=== PATIENT | female | born 1995 | race Caucasian/White ===

== ENCOUNTER 2019-08-31 20:28 | Emergency (ER) | payer SELFPAY ==
[2019-08-31 22:39] LABS: Urine Blood NEGATIVE (NEG); Urine Glucose NEGATIVE (NEG); Urine Protein NEGATIVE (NEG); Urine Specific Gravity 1.025 (1.005-1.030)
[2019-08-31 22:40] LABS: Urine Specific Gravity 1.025 (1.005-1.030)
[2019-08-31] MEDS ORDERED: clonazePAM 0.5 MG TAB ONE (22:55)
[2019-08-31 23:32] LABS: Absolute Lymphocytes (CBC) 3.4 K/uL (0.7-4.9); Hematocrit 38.1 % (36.0-45.0); Lymphocytes % 35.9 % (15.3-44.8); MPV 8.7 fL (7.6-11.3); RBC Red Blood Cell Count 4.61 M/uL (3.86-4.86)
[2019-08-31 23:46] LABS: BUN Blood Urea Nitrogen 8 mg/dL (7-18); Bicarbonate 26 mmol/L (21-32); Glucose Level 110 mg/dL (74-106); Potassium 4.1 mmol/L (3.5-5.1); Sodium Level 139 mmol/L (136-145)
--- NOTE | 2019-09-01 00:43 | EDPHYS ---
Physician Documentation [facility] Name: Renetta Ramirez Age: 23 yrs Sex: Female : 1995 Arrival Date: 08/31/2019 Time: 20:32 Bed 14 Private MD: ED Physician Navid Gonzalez HPI: 08/30 23:43 This 23 yrs old Female presents to ER via Ambulatory with complaints of kb Shortness Of Breath, Nausea, Headache. 23:43 The patient presents to the emergency department with nausea, vomiting. Onset: The kb symptoms/episode began/occurred this morning. Possible causes: unknown. The symptoms are aggravated by nothing. The symptoms are alleviated by nothing. Associated signs and symptoms: Pertinent positives: nausea, vomiting, Pertinent negatives: abdominal pain, anorexia, belching, constipation, diarrhea, dysuria, fever, flatulence, GI bleeding, hematuria, vaginal discharge. Severity of symptoms: At their worst the symptoms were moderate in the emergency department the symptoms are unchanged. The patient has not experienced similar symptoms in the past. The patient has not recently seen a physician. Pt reports nausea, vomiting, low back pain and lightheadedness that started this morning. . 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 - Social history:: Smoking status: Patient denies any tobacco usage or history of. ROS: 23:41 Constitutional: Negative for fever, chills, and weight loss, Neck: Negative for injury, kb pain, and swelling, Cardiovascular: Negative for chest pain, palpitations, and edema, Respiratory: Negative for shortness of breath, cough, wheezing, and pleuritic chest pain, : Negative for injury, bleeding, discharge, and swelling, MS/Extremity: Negative for injury and deformity, Skin: Negative for injury, rash, and discoloration, Neuro: Negative for headache, weakness, numbness, tingling, and seizure. 23:41 Abdomen/GI: Positive for nausea and vomiting, Negative for abdominal pain, diarrhea, constipation. 23:42 Back: Positive for pain at rest, of the low back area. kb Exam: 23:42 Constitutional: This is a well developed, well nourished patient who is awake, alert, kb and in no acute distress. Head/Face: Normocephalic, atraumatic. ENT: Nares patent. No nasal discharge, no septal abnormalities noted. Tympanic membranes are normal and external auditory canals are clear. Oropharynx with no redness, swelling, or masses, exudates, or evidence of obstruction, uvula midline. Mucous membranes moist. Neck: Trachea midline, no thyromegaly or masses palpated, and no cervical lymphadenopathy. Supple, full range of motion without nuchal rigidity, or vertebral point tenderness. No Meningismus. Chest/axilla: Normal chest wall appearance and motion. Nontender with no deformity. No lesions are appreciated. Cardiovascular: Regular rate and rhythm with a normal S1 and S2. No gallops, murmurs, or rubs. Normal PMI, no JVD. No pulse deficits. Respiratory: Lungs have equal breath sounds bilaterally, clear to auscultation and percussion. No rales, rhonchi or wheezes noted. No increased work of breathing, no retractions or nasal flaring. Abdomen/GI: Soft, non-tender, with normal bowel sounds. No distension or tympany. No guarding or rebound. No evidence of tenderness throughout. Skin: Warm, dry with normal turgor. Normal color with no rashes, no lesions, and no evidence of cellulitis. MS/ Extremity: Pulses equal, no cyanosis. Neurovascular intact. Full, normal range of motion. Neuro: Awake and alert, GCS 15, oriented to person, place, time, and situation. Cranial nerves II-XII grossly intact. Motor strength 5/5 in all extremities. Sensory grossly intact. Cerebellar exam normal. Normal gait. Vital Signs: 20:40 BP 138 / 80; Pulse 103; Resp 19 S; Temp 98(O); Pulse Ox 98% on R/A; Weight 104.33 kg ca1 (R); Height 5 ft. 4 in. (162.56 cm) (R); Pain 0/10; 22:05 BP 147 / 95; Pulse 93; Resp 17 S; Pulse Ox 99% on R/A; ca1 23:06 BP 125 / 70; Pulse 89; Resp 19; Pulse Ox 100% on R/A; ca1 20:40 Body Mass Index 39.48 (104.33 kg, 162.56 cm) ca1 MDM: 21:56 Patient medically screened. charlie 22:48 ED course: Pt began having anxiety attack when nurse went to start IV and get blood. Pt kb states this happens every time she has blood work done and normally has to take clonazapam prior to going to the lab. . 23:15 Data reviewed: vital signs, nurses notes. Data interpreted: Pulse oximetry: on room air kb is 100 %. Interpretation: normal. 08/31 00:41 Counseling: I had a detailed discussion with the patient and/or guardian regarding: the kb historical points, exam findings, and any diagnostic results supporting the discharge/admit diagnosis, lab results, radiology results, the need for outpatient follow up, a family practitioner, to return to the emergency department if symptoms worsen or persist or if there are any questions or concerns that arise at home. 08/30 22:10 Order name: CBC with Diff kb 08/30 22:10 Order name: Basic Metabolic Panel kb 08/30 22:10 Order name: D-Dimer kb 08/30 22:10 Order name: Hemoglobin A1c kb 08/30 22:11 Order name: CBC with Automated Diff; Complete Time: 23:49 EDMS 08/30 22:11 Order name: Basic Metabolic Panel; Complete Time: 23:49 EDMS 08/30 22:10 Order name: IV Start; Complete Time: 23:20 kb 08/30 22:10 Order name: Urine Test (obtain specimen); Complete Time: 22:17 kb 08/30 22:11 Order name: D-Dimer; Complete Time: 23:49 EDMS 08/30 22:18 Order name: Urine Dipstick--Ancillary (enter results) ds4 08/30 22:18 Order name: Urine Dipstick-Ancillary; Complete Time: 22:43 EDMS 08/30 22:19 Order name: Urine --Ancillary (enter results); Complete Time: 22:43 ds4 08/30 23:51 Order name: Chest Single View XRAY kb 08/30 22:10 Order name: Urine Dipstick-Ancillary (obtain specimen); Complete Time: 22:17 kb Administered Medications: 08/30 22:53 Drug: clonazePAM 0.25 mg Route: PO; mg2 23:30 Follow up: Response: No adverse reaction; Marked relief of symptoms mg2 Disposition: 09/01/19 00:41 Discharged to Home. Impression: Nausea and vomiting, Low back pain. - Condition is Stable. - Discharge Instructions: Nausea and Vomiting, Adult, Bjxe-jx-Eynz, Back Pain, Adult, Iluj-qi-Youy. - Prescriptions for Zofran 4 mg Oral Tablet - take 1 tablet by ORAL route every 6 hours As needed; 20 tablet. - Medication Reconciliation Form, Thank You Letter, Antibiotic Education, Prescription Opioid Use, Work release form form. - Follow up: Emergency Department; When: As needed; Reason: Worsening of condition. Follow up: Private Physician; When: 2 - 3 days; Reason: Recheck today's complaints, Continuance of care, Re-evaluation by your physician. Addendum: 09/03/2019 15:02 Co-signature as Attending Physician, Navid Gonzalez MD I agree with the assessment and c blair plan of care. Signatures: Dispatcher [employer] EDNadia Garcia, MUNICIPAL FIREFIGHTER-C MUNICIPAL FIREFIGHTER-Navid Nagy MD MD cha Gardose, Michele, RN RN mg2 Rosalie Reed RN RN ca1 Corrections: (The following items were deleted from the chart) 08/30 23:43 23:41 Constitutional: Negative for fever, chills, and weight loss, Neck: Negative for kb injury, pain, and swelling, Cardiovascular: Negative for chest pain, palpitations, and edema, Respiratory: Negative for shortness of breath, cough, wheezing, and pleuritic chest pain, Back: Negative for injury and pain, : Negative for injury, bleeding, discharge, and swelling, MS/Extremity: Negative for injury and deformity, Skin: Negative for injury, rash, and discoloration, Neuro: Negative for headache, weakness, numbness, tingling, and seizure, kb 08/31 01:25 00:41 09/01/2019 00:41 Discharged to Home. Impression: Nausea and vomiting; Low back mg2 pain. Condition is Stable. Forms are Medication Reconciliation Form, Thank You Letter, Antibiotic Education, Prescription Opioid Use. Follow up: Emergency Department; When: As needed; Reason: Worsening of condition. Follow up: Private Physician; When: 2 - 3 days; Reason: Recheck today's complaints, Continuance of care, Re-evaluation by your physician. kb
--- NOTE | 2019-09-01 00:43 | ER ---
Nurse's Notes [facility] Name: Renetta Ramirez Age: 23 yrs Sex: Female : 1995 Arrival Date: 08/31/2019 Time: 20:32 Bed 14 Private MD: Diagnosis: Nausea and vomiting;Low back pain Presentation: 08/30 20:37 Chief complaint: Patient states: Was at work earlier today, started having tight chest, ca1 nausea, dizziness and like I was about to pass out. Denies fever and cough. Coronavirus screen: Proceed with normal triage. Patient denies a cough. Patient reports shortness of breath or difficulty breathing. Patient denies measured and/or subjective temperature greater than 100.4F prior to today's visit. Patient denies travel on a cruise ship or to a country the [facility] currently lists as an affected area. Patient denies contact with known and/or suspected case of COVID-19. Ebola Screen: Patient negative for fever greater than or equal to 101.5 degrees Fahrenheit, and additional compatible Ebola Virus Disease symptoms Patient denies exposure to infectious person. Patient denies travel to an Ebola-affected area in the 21 days before illness onset. No symptoms or risks identified at this time. Initial Sepsis Screen: Does the patient meet any 2 criteria? No. Patient's initial sepsis screen is negative. Does the patient have a suspected source of infection? No. Patient's initial sepsis screen is negative. Risk Assessment: Do you want to hurt yourself or someone else? Patient reports no desire to harm self or others. Onset of symptoms was August 31, 2019. 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 - Social history:: Smoking status: Patient denies any tobacco usage or history of. Screenin:04 Abuse screen: Denies threats or abuse. Denies injuries from another. Nutritional ca1 screening: No deficits noted. Tuberculosis screening: No symptoms or risk factors identified. Fall Risk None identified. Assessment: 22:04 General: Appears in no apparent distress. comfortable, Behavior is calm, cooperative, ca1 appropriate for age. General: Appears obese. Pain: Denies pain. Neuro: Level of Consciousness is awake, alert, obeys commands, Oriented to person, place, time, situation. Cardiovascular: Heart tones S1 S2 present Capillary refill < 3 seconds Patient's skin is warm and dry. Respiratory: Airway is patent Respiratory effort is even, unlabored, Respiratory pattern is regular, symmetrical, Breath sounds are clear bilaterally. GI: Abdomen is round non-distended, obese, Bowel sounds present X 4 quads. Abd is soft and non tender X 4 quads. : No signs and/or symptoms were reported regarding the genitourinary system. EENT: No signs and/or symptoms were reported regarding the EENT system. Derm: Skin is intact, is healthy with good turgor, Skin is pink, warm \T\ dry. Musculoskeletal: Circulation, motion, and sensation intact. Capillary refill < 3 seconds. Vital Signs: 20:40 BP 138 / 80; Pulse 103; Resp 19 S; Temp 98(O); Pulse Ox 98% on R/A; Weight 104.33 kg ca1 (R); Height 5 ft. 4 in. (162.56 cm) (R); Pain 0/10; 22:05 BP 147 / 95; Pulse 93; Resp 17 S; Pulse Ox 99% on R/A; ca1 23:06 BP 125 / 70; Pulse 89; Resp 19; Pulse Ox 100% on R/A; ca1 20:40 Body Mass Index 39.48 (104.33 kg, 162.56 cm) ca1 ED Course: 20:32 Patient arrived in ED. fj1 20:34 Nadia Martinez FNP-C is PHCP. kb 20:34 Navid Gonzalez MD is Attending Physician. kb 20:39 Triage completed. ca1 20:40 Arm band placed on right wrist. ca1 21:53 Rosalie Reed RN is Primary Nurse. ca1 22:04 Patient has correct armband on for positive identification. Bed in low position. Call ca1 light in reach. Side rails up X 1. Pulse ox on. NIBP on. 23:11 Report given to SHWETA Ventura. ca1 23:15 Inserted saline lock: 20 gauge in left upper arm, using aseptic technique. Blood mg2 collected. 23:27 No provider procedures requiring assistance completed. mg2 08/31 00:24 Chest Single View XRAY In Process Unspecified. EDMS 01:24 IV discontinued, intact, bleeding controlled, No redness/swelling at site. Pressure mg2 dressing applied. Administered Medications: 08/30 22:53 Drug: clonazePAM 0.25 mg Route: PO; mg2 23:30 Follow up: Response: No adverse reaction; Marked relief of symptoms mg2 Outcome: 08/31 00:41 Discharge ordered by . vidhi 01:24 Discharged to home ambulatory. mg2 01:24 Condition: stable 01:24 Discharge instructions given to patient, Instructed on discharge instructions, follow up and referral plans. medication usage, Demonstrated understanding of instructions, follow-up care, medications, Prescriptions given X 1. 01:25 Patient left the ED. mg2 Signatures: Dispatcher [employer] EDMS Nadia Martinez, DYLAN-C DYLAN-Jermaine Elam RN RN mg2 Rosalie Reed RN RN ca1 Luigi Aguilar fj Corrections: (The following items were deleted from the chart) 08/30 20:41 20:37 Chief complaint: Patient states: Was at work earlier today, started having tight ca1 chest, nausea, dizziness and like I was about to pass out. Denies fever and cough. ca1 20:41 20:37 Coronavirus screen: Proceed with normal triage. Patient denies a cough. Patient ca1 denies shortness of breath or difficulty breathing. Patient denies measured and/or subjective temperature greater than 100.4F prior to today's visit. Patient denies travel on a cruise ship or to a country the [facility] currently lists as an affected area. Patient denies contact with known and/or suspected case of COVID-19. ca1 23:11 23:06 Pulse 89bpm; Resp 19bpm; Pulse Ox 100% RA; ca1 ca1
[2019-09-01 02:37] VITALS: TEMP 98
[2019-09-01 02:40] VITALS: BP 125/70; O2SAT 100
--- NOTE | 2019-09-01 11:53 | RAD REPORT ---
EXAM DESCRIPTION: RAD - Chest Single View - 09/01/2019 12:24 am CLINICAL HISTORY: DYSPNEA Chest pain. COMPARISON: No comparisons FINDINGS: Portable technique limits examination quality. The lungs are grossly clear. The heart is normal in size. No displaced fractures. IMPRESSION: No acute intrathoracic process suspected.
== END 2019-09-01 01:25 | disposition home or self-care (01) ==
LOC: ER 20:28
DX: R11.2 Nausea with vomiting, unspecified (principal); M54.5 Low back pain
CPT/HCPCS: 36415; 71045; 80048; 81003; 81025; 85025; 85379; 99284

== ENCOUNTER 2020-10-19 21:19 | Emergency (ER) | payer SELFPAY ==
--- OUTSIDE RECORDS SUMMARY | 2020-10-19 21:22 | XMS REPORT | Continuity of Care Document ---
:1995 Author Organization [facility] t Address [address] [place] [address] Care Team Providers Name Role Phone Melanie Hamilton MD Attending Clinician Luis RICHARDSON Attending Clinician Chuck Attending Clinician Adwoa Valle DO Attending Clinician Trino SALDANA Attending Clinician Aaron RICHARDSON Attending Clinician Trino SALDANA Admitting Clinician Problems This patient has no known problems. Allergies, Adverse Reactions, Alerts This patient has no known allergies or adverse reactions. Medications This patient has no known medications. Procedures This patient has no known procedures. Encounters Start End Encounter Admission Attending Care Care Encounter Source Date/Time Date/Time Type Type Clinicians Facility Department ID 2019-12-21 2019-12-21 Emergency Joy, JOY [id number] 08:43:00 11:25:00 Ashu FERNANDES [id number] 2019-12-13 2019-12-13 Emergency CAIO Smith [id number] 19:03:00 20:33:00 Jhonny Rogers [id number] [place] [id number] [place] [id number] 2019-10-22 2019-10-22 Transition [place] [id number] 00:00:00 00:00:00 of Care Debby Cerna [id number] [place] [id number] 2019-10-19 2019-10-20 [facility] [address] [id number] 10:31:16 14:20:00 Encounter Naren Jameson [id number] [place] [id number] [place] [id number] 2019-10-15 2019-10-15 Emergency [facility] [id number] 16:33:19 20:25:00 Hardik Rogers [id number] [place] [id number] [place] [id number] 2019-07-17 2019-07-17 Emergency E [facility]BL [facility]BL [id number] [facility]BL 16:09:00 16:09:00 Results This patient has no known results.
--- NOTE | 2020-10-19 22:03 | EDPHYS ---
Physician Documentation [facility] Name: Renetta Ramirez Age: 24 yrs Sex: Female : 1995 Arrival Date: 10/19/2020 Time: 21:23 Bed 24 Private MD: ED Physician Shan Lebron HPI: 10/20 00:33 This 24 yrs old Female presents to ER via Ambulatory with complaints of Ear kb Pain. 00:33 The patient presents with drainage, a fullness, pain. The complaints affect the left kb ear. Onset: The symptoms/episode began/occurred today. Modifying factors: The symptoms are alleviated by nothing, the symptoms are aggravated by nothing. Associated signs and symptoms: The patient has no apparent associated signs or symptoms. Severity of symptoms: At their worst the symptoms were moderate in the emergency department the symptoms are unchanged. The patient has experienced similar episodes in the past. The patient has not recently seen a physician. 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 Flu vaccine is up to date. - Social history:: Smoking status: Patient denies any tobacco usage or history of. ROS: 10/20 00:33 Constitutional: Negative for fever, chills, and weight loss. kb ENT: Positive for drainage from ear(s), ear pain. All other systems are negative. Exam: 00:32 Constitutional: This is a well developed, well nourished patient who is awake, alert, kb and in no acute distress. Head/Face: Normocephalic, atraumatic. Respiratory: Respirations even and unlabored. No increased work of breathing, no retractions or nasal flaring. Skin: Warm, dry with normal turgor. Normal color. MS/ Extremity: Pulses equal, no cyanosis. Neurovascular intact. Full, normal range of motion. Neuro: Awake and alert, GCS 15, oriented to person, place, time, and situation. Moves all extremities. Normal gait. Psych: Awake, alert, with orientation to person, place and time. Behavior, mood, and affect are within normal limits. 00:32 ENT: External ear(s): are unremarkable, erythema, that is moderate, Ear canal(s): erythema, that is moderate, of the left canal, purulent discharge, that is minimal, in the left canal, swelling, that is minimal, of the left canal, TM's: not visable, because of cerumen, Examination of the other ear shows no obvious abnormality. Vital Signs: 10/19 21:35 BP 132 / 73; Pulse 97; Resp 16; Temp 97.6(TE); Pulse Ox 98% on R/A; Weight 113.4 kg ca1 (R); Height 5 ft. 4 in. (162.56 cm) (R); Pain 6/10; 22:05 BP 106 / 53; Pulse 99; Resp 18; Pulse Ox 97% on R/A; vg1 21:35 Body Mass Index 42.91 (113.40 kg, 162.56 cm) ca1 MDM: 21:45 Patient medically screened. kb 10/20 00:32 Data reviewed: vital signs, nurses notes. Data interpreted: Pulse oximetry: on room air kb is 97 %. Interpretation: normal. Counseling: I had a detailed discussion with the patient and/or guardian regarding: the historical points, exam findings, and any diagnostic results supporting the discharge/admit diagnosis, the need for outpatient follow up, an ENT specialist, to return to the emergency department if symptoms worsen or persist or if there are any questions or concerns that arise at home. Administered Medications: No medications were administered Disposition: 02:01 Co-signature as Attending Physician, Shan Lebron MD. pkl Disposition: 10/19/20 22:02 Discharged to Home. Impression: Unspecified otitis externa, left ear. - Condition is Stable. - Discharge Instructions: Otitis Externa, Klgq-pm-Ldlg, Ear Drops, Adult, Sitm-uz-Tyfz. - Prescriptions for Cortisporin 3.5- 10,000-1 mg/mL-unit/mL-% Otic solution - instill 4 drop by OTIC route 4 times per day for 7 days; 1 bottle. - Medication Reconciliation Form, Thank You Letter, Antibiotic Education, Prescription Opioid Use form. - Follow up: Emergency Department; When: As needed; Reason: Worsening of condition. Follow up: Private Physician; When: 2 - 3 days; Reason: Recheck today's complaints, Continuance of care, Re-evaluation by your physician. Signatures: Nadia Martinez FNP-C FNP-Ckb Lam, Pin, MD MD pkRosalie Ortega RN RN ca1 Bridgette Ray RN RN vg1 Corrections: (The following items were deleted from the chart) 10/19 22:12 22:02 10/19/2020 22:02 Discharged to Home. Impression: Unspecified otitis externa, left vg1 ear. Condition is Stable. Forms are Medication Reconciliation Form, Thank You Letter, Antibiotic Education, Prescription Opioid Use. Follow up: Emergency Department; When: As needed; Reason: Worsening of condition. Follow up: Private Physician; When: 2 - 3 days; Reason: Recheck today's complaints, Continuance of care, Re-evaluation by your physician. kb
--- NOTE | 2020-10-19 22:03 | ER ---
Nurse's Notes [facility] Name: Renetta Ramirez Age: 24 yrs Sex: Female : 1995 Arrival Date: 10/19/2020 Time: 21:23 Bed 24 Private MD: Diagnosis: Unspecified otitis externa, left ear Presentation: 10/19 21:35 Chief complaint: Patient states: L ear pain and drainage since this morning. HX of ca1 frequent L ear infections. Coronavirus screen: Client denies travel out of the [place] in the last 14 days. At this time, the client does not indicate any symptoms associated with coronavirus-19. Ebola Screen: Patient negative for fever greater than or equal to 101.5 degrees Fahrenheit, and additional compatible Ebola Virus Disease symptoms Patient denies exposure to infectious person. Patient denies travel to an Ebola-affected area in the 21 days before illness onset. No symptoms or risks identified at this time. Initial Sepsis Screen: Does the patient meet any 2 criteria? No. Patient's initial sepsis screen is negative. Does the patient have a suspected source of infection? No. Patient's initial sepsis screen is negative. Risk Assessment: Do you want to hurt yourself or someone else? Patient reports no desire to harm self or others. Onset of symptoms was October 19, 2020. 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 Flu vaccine is up to date. - Social history:: Smoking status: Patient denies any tobacco usage or history of. Screenin:05 Abuse screen: Denies threats or abuse. Nutritional screening: No deficits noted. vg1 Tuberculosis screening: No symptoms or risk factors identified. Fall Risk None identified. Assessment: 22:03 General: Appears in no apparent distress. comfortable, Behavior is calm, cooperative. vg1 Pain: Complains of pain in left ear Pain currently is 6 out of 10 on a pain scale. Neuro: Level of Consciousness is awake, alert, obeys commands, Oriented to person, place, time, situation. Cardiovascular: Patient's skin is warm and dry. Respiratory: Airway is patent Respiratory effort is even, unlabored. GI: No signs and/or symptoms were reported involving the gastrointestinal system. : No signs and/or symptoms were reported regarding the genitourinary system. EENT: Ear canal clear on left ear. Derm: Skin is intact, is healthy with good turgor. Musculoskeletal: Circulation, motion, and sensation intact. Vital Signs: 21:35 BP 132 / 73; Pulse 97; Resp 16; Temp 97.6(TE); Pulse Ox 98% on R/A; Weight 113.4 kg ca1 (R); Height 5 ft. 4 in. (162.56 cm) (R); Pain 6/10; 22:05 BP 106 / 53; Pulse 99; Resp 18; Pulse Ox 97% on R/A; vg1 21:35 Body Mass Index 42.91 (113.40 kg, 162.56 cm) ca1 ED Course: 21:23 Patient arrived in ED. as 21:26 [facility]C [facility]. kb 21:26 Shan Lebron MD is Attending Physician. kb 21:36 Triage completed. ca1 21:38 Arm band placed on right wrist. ca1 21:52 Bridgette Rya RN is Primary Nurse. vg1 22:05 Patient has correct armband on for positive identification. Bed in low position. Call vg1 light in reach. Adult w/ patient. 22:12 No provider procedures requiring assistance completed. Patient did not have IV access vg1 during this emergency room visit. Administered Medications: No medications were administered Outcome: 22:02 Discharge ordered by . kb 22:12 Discharged to home ambulatory. vg1 22:12 Condition: stable 22:12 Discharge instructions given to patient, Instructed on discharge instructions, follow up and referral plans. medication usage, Demonstrated understanding of instructions, follow-up care, medications, Prescriptions given X 1. 22:12 Patient left the ED. vg1 Signatures: Nadia Martinez FNP-C FNP-Ckb Martinez, Amelia as Acob, Cheryl RN RN ca1 Bridgette Ray, RN RN vg1
[2020-10-19 23:13] VITALS: TEMP 97.6
[2020-10-19 23:15] VITALS: BP 106/53; O2SAT 97
== END 2020-10-19 22:12 | disposition home or self-care (01) ==
LOC: ER 21:19
DX: H60.92 Unspecified otitis externa, left ear (principal); E11.9 Type 2 diabetes mellitus without complications; I10 Essential (primary) hypertension; Z79.84 Long term (current) use of oral hypoglycemic drugs
CPT/HCPCS: 99282

== ENCOUNTER 2021-04-04 06:41 | Emergency (ER) | payer SELFPAY ==
--- OUTSIDE RECORDS SUMMARY | 2021-04-04 06:53 | XMS REPORT | Continuity of Care Document ---
:1995 Author Organization [facility] t Address [address] [place] [address] Care Team Providers Name Role Phone Nadeen PAYTON Primary Care Physician Unavailable Melanie Hamilton MD Attending Clinician Melanie HAMILTON Attending Clinician Unavailable Luis RICHARDSON Attending Clinician Chuck Attending Clinician TRINO Attending Clinician Unavailable Adwoa Valle DO Attending Clinician Trino SALDANA Attending Clinician AARON Attending Clinician Unavailable Aaron RICHARDSON Attending Clinician TRINO Admitting Clinician Unavailable Trino SALDANA Admitting Clinician AARON Admitting Clinician Unavailable Payers Payer Name Policy Type Policy Number Effective Date Expiration Date Isadora coronel COVID19 [facility] [id number] 2019 2019 UNINSURED 00:00:00 00:00:00 Problems This patient has no known problems. Allergies, Adverse Reactions, Alerts Allergy Allergy Status Severity Reaction(s) Onset Inactive Treating Comm ents Source Name Type Date Date Clinician NO KNOWN Drug Active [facility] of [facility] Medications This patient has no known medications. Procedures This patient has no known procedures. Encounters Start End Encounter Admission Attending Care Care Encounter Source Date/Time Date/Time Type Type Clinicians Facility Department ID 2019-12-21 2019-12-21 Emergency Morrical, TRAU[facility] [id number] 08:43:00 11:25:00 Ashu FERNANDES [id number] 2019-12-21 2019-12-21 Emergency X LARA, [facility] ERT [id number] Univers 08:43:00 08:43:00 ASHU garcias [facility] 2019-12-13 2019-12-13 Emergency Luis, [facility] [id number] 19:03:00 20:33:00 Jhonny Rogers [id number] [place] [id number] [place] [id number] 2019-12-13 2019-12-13 Emergency X [facility] ERT [id number] Univers 18:43:00 18:43:00 ity [facility] 2019-10-22 2019-10-22 Transition Yandel [place] [id number] 00:00:00 00:00:00 of Care Debby Bradleyy [id number] [place] [id number] 2019-10-19 2019-10-20 Inpatient X NAREN JAMESON [facility] DARRELL [id number] Univers 10:31:16 14:20:00 ity [facility] 2019-10-19 2019-10-20 [facility]le [facility] [id number] 10:31:16 14:20:00 Encounter Naren Jameson [id number] [place] [id number] [place] [id number] 2019-10-15 2019-10-15 Emergency X AARON, [facility] ERT [id number] Univers 16:33:19 20:25:00 VITA [facility] 2019-10-15 2019-10-15 Emergency Vincsurjit, [facility] [id number] 16:33:19 20:25:00 Vita Rogers [id number] [place] [id number] [place] [id number] 2019-07-17 2019-07-17 Emergency E MHBL MHBL [id number] [id number] 16:09:00 16:09:00 Results This patient has no known results.
[2021-04-04 08:11] LABS: Absolute Lymphocytes (CBC) 3.3 K/uL (0.7-4.9); Basophils % 0.4 % (0-1.3); Hematocrit 36.4 % (36.0-45.0); Lymphocytes % 22.7 % (15.3-44.8); MPV 7.7 fL (7.6-11.3); RBC Red Blood Cell Count 4.72 M/uL (3.86-4.86)
[2021-04-04 08:18] LABS: Urine Blood Negative (Negative); Urine Glucose Trace (Negative); Urine Protein Trace (Negative); Urine Specific Gravity >=1.030 (1.005-1.030); Urine pH 5.5 (5.0-7.0)
[2021-04-04 08:31] LABS: ALT/SGPT 77 U/L (12-78); AST/SGOT 44 U/L (15-37); Albumin 3.9 g/dL (3.4-5.0); Alkaline Phosphatase 75 U/L (45-117); BUN Blood Urea Nitrogen 8 mg/dL (7-18); Bicarbonate 27 mmol/L (21-32); Bilirubin Direct 0.1 mg/dL (0-0.2); Bilirubin Total 0.4 mg/dL (0.2-1.0); Glucose Level 201 mg/dL (74-106); Lipase 84 U/L (73-393); Protein, Total 7.7 g/dL (6.4-8.2); Sodium Level 141 mmol/L (136-145)
--- NOTE | 2021-04-04 08:43 | RAD REPORT ---
EXAM DESCRIPTION: CT - Abdomen Pelvis W Contrast - 04/04/2021 8:31 am CLINICAL HISTORY: ABD PAIN COMPARISON: No comparisons TECHNIQUE: Biphasic, helical CT imaging of the abdomen and pelvis was performed following 100 ml non -ionic IV contrast. No oral contrast administered. All CT scans are performed using dose optimization technique as appropriate and may include automated exposure control or mA/KV adjustment according to patient size. FINDINGS: No suspicious findings in the lung bases. The liver, spleen, and pancreas show no suspicious focal findings. Diffuse fatty infiltration is pres ent in the liver. No portal vein abnormality. Cholecystectomy clips are present with no biliary tree dilatation. Symmetric renal function is seen with no hydronephrosis or suspicious renal mass. No pyelonephritis o r acute parenchymal process. No bladder abnormalities. No adrenal abnormalities. Uterus and ovaries s how no suspicious findings. No dilated bowel loops or bowel wall thickening. Appendix is normal No free air, free fluid or inflam matory stranding. No hernia, mass or bulky lymphadenopathy. No suspicious bony findings. IMPRESSION: Contrast enhanced CT abdomen and pelvis showing no acute or emergent finding.
[2021-04-04] MEDS ORDERED: ONDANSETRON 4 MG/2 ML VIAL ONE (09:45)
[2021-04-04] MEDS ORDERED: KETOROLAC 30 MG/ML INJ ONE (09:46)
--- NOTE | 2021-04-04 10:33 | RAD REPORT ---
EXAM DESCRIPTION: RAD - Chest Single View - 04/04/2021 10:12 am CLINICAL HISTORY: DYSPNEA, abdominal pain COMPARISON: August 2019 TECHNIQUE: AP portable chest image was obtained 04/04/2021 10:12 am . FINDINGS: Lung volumes are low. Large body habitus and portable technique limit assessment. No mass or consolidation. Failure and volume overload are not suspected. Heart and vasculature are normal. No measurable pleural effusion and no pneumothorax. No acute bony abnormality seen. No acute aortic fin dings suspected. IMPRESSION: Limited portable study with no acute cardiopulmonary process.
[2021-04-04 10:48] LABS: SARS-COV-2 RT PCR NEGATIVE (NEGATIVE)
--- NOTE | 2021-04-04 11:17 | ER ---
Nurse's Notes [facility] Name: Renetta Goff Age: 25 yrs Sex: Female : 1995 Arrival Date: 04/04/2021 Time: 06:46 Bed 16 Private MD: Diagnosis: Abdominal pain, Generalized Presentation: 04/04 07:28 Chief complaint: Patient states: N/V and abd pain x 2 days. Also c/o sore throat x 2-3 ss days. SOB that began this morning. Coronavirus screen: Client presents with at least one sign or symptom that may indicate coronavirus-19. Ebola Screen: Patient denies exposure to infectious person. Patient denies travel to an Ebola-affected area in the 21 days before illness onset. Initial Sepsis Screen: Does the patient meet any 2 criteria? No. Patient's initial sepsis screen is negative. Does the patient have a suspected source of infection? No. Patient's initial sepsis screen is negative. Risk Assessment: Do you want to hurt yourself or someone else? Patient reports no desire to harm self or others. Onset of symptoms was April 01, 2021. 07:28 Method Of Arrival: Ambulatory ss 07:28 Acuity: DELIA 3 ss Triage Assessment: 10:00 General: Appears in no apparent distress. Behavior is calm, cooperative. EENT: No [facility] deficits noted. 10:00 GI: Reports lower abdominal pain. 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 - Social history:: Smoking status: Patient denies any tobacco usage or history of. Patient uses alcohol, only on a social basis. Screenin:25 Abuse screen: Denies threats or abuse. Nutritional screening: No deficits noted. jh6 Tuberculosis screening: No symptoms or risk factors identified. Fall Risk None identified. Assessment: 10:00 Pain: Complains of pain in right lower quadrant and abdomen diffusely Pain does not jh6 radiate. Pain currently is 6 out of 10 on a pain scale. Quality of pain is described as sharp, Pain began 2-3 days ago. Is intermittent, Aggravated by increased activity, weight bearing. 10:00 Respiratory: Airway is patent Trachea midline Respiratory effort is even, unlabored, jh6 relaxed, Breath sounds are clear. EENT: No deficits noted. 10:00 EENT: Throat is clear is pink. 6 Vital Signs: 07:28 BP 143 / 82; Pulse 110; Resp 18; Temp 97.8(TE); Pulse Ox 98% ; Weight 127.01 kg; Height ss 5 ft. 4 in. (162.56 cm); 10:00 BP 121 / 83; Pulse 93; Resp 20; Pulse Ox 92% on R/A; Pain 6/10; jh6 11:15 BP 153 / 88; Pulse 96; Resp 20 S; Pulse Ox 96% on R/A; jg9 07:28 Body Mass Index 48.06 (127.01 kg, 162.56 cm) ED Course: 06:46 Patient arrived in ED. wm 06:50 Nadia Martinez FNP-C is PHCP. kb 06:50 Zeke Jhaveri MD is Attending Physician. kb 07:32 Triage completed. ss 07:32 Arm band placed on right wrist. ss 07:57 Missed attempt(s): 22 gauge in left antecubital area. mh5 08:07 Inserted saline lock: 22 gauge in left upper arm, using aseptic technique. Blood ss collected. 08:19 Initial lab(s) drawn, by ED staff, Urine collected: clean catch specimen, clear. mh5 08:31 CT Abd/Pelvis - IV Contrast Only In Process Unspecified. EDMS 09:43 Cee Del Rosario, SHWETA is Primary Nurse. jh6 10:12 Chest Single View XRAY In Process Unspecified. EDMS 10:26 Call light in reach. Side rails up X 1. Adult w/ patient. jh6 10:31 COVID-19/FLU A+B (Document "Date of Onset" if Symptomatic) Sent. mh5 10:31 Throat Culture Sent. mh5 10:31 Basic Metabolic Panel Sent. mh5 10:32 CBC with Diff Sent. mh5 10:32 Hepatic Function Sent. mh5 10:32 Lipase Sent. mh5 11:34 No provider procedures requiring assistance completed. jg9 11:35 IV discontinued, intact, bleeding controlled, No redness/swelling at site. Pressure jg9 dressing applied. Administered Medications: 09:48 Drug: Ketorolac 30 mg Route: IVP; Site: left antecubital; [facility] 11:00 Follow up: Response: No adverse reaction; No change in condition jg9 09:48 Drug: Zofran (Ondansetron) 4 mg Route: IVP; Site: left antecubital; [facility] 11:00 Follow up: Response: No adverse reaction; No change in condition jg9 Outcome: 11:16 Discharge ordered by . vidhi 11:35 Discharged to home ambulatory. jg9 11:35 Condition: stable 11:35 Discharge instructions given to patient, Instructed on discharge instructions, follow up and referral plans. Demonstrated understanding of instructions, follow-up care, medications, Prescriptions given X 2. 11:37 Patient left the ED. jg9 Signatures: Dispatcher [employer] EDMS Nadia Martinez, WILLIE RICHARDSON-Angeli Juan RN RN ss Martinez, Maria [facility] Stacy Ortega Jennifer, RN RN jh6 Cee Ceron jg9
--- NOTE | 2021-04-04 11:17 | EDPHYS ---
Physician Documentation [facility] Name: Renetta Goff Age: 25 yrs Sex: Female : 1995 Arrival Date: 04/04/2021 Time: 06:46 Bed 16 Private MD: ED Physician Zeke Jhaveri HPI: 04/04 09:31 This 25 yrs old Female presents to ER via Ambulatory with complaints of Sore Throat, kb Abdominal Pain - Right Side. 09:31 The patient presents with sore throat. The patient describes throat pain as constant. kb Onset: The symptoms/episode began/occurred 2 day(s) ago. Severity of symptoms: At their worst the symptoms were moderate, in the emergency department the symptoms are unchanged. Modifying factors: The symptoms are alleviated by nothing, the symptoms are aggravated by nothing, Patient's oral intake status: good. Associated signs and symptoms: Pertinent positives: diarrhea, nausea, Sore throat Pertinent negatives fever. The patient has not experienced similar symptoms in the past. The patient has not recently seen a physician. Pt reports sore throat, abd pain, nausea and diarrhea that started 2 days ago. Reports shortness of breath this morning. 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 - Social history:: Smoking status: Patient denies any tobacco usage or history of. Patient uses alcohol, only on a social basis. ROS: 09:30 Constitutional: Negative for fever, chills, and weight loss. kb 09:30 ENT: Positive for sore throat. 09:30 Abdomen/GI: Positive for abdominal pain, nausea, diarrhea. 09:30 All other systems are negative. Exam: 09:30 Constitutional: This is a well developed, well nourished patient who is awake, alert, kb and in no acute distress. Head/Face: Normocephalic, atraumatic. ENT: Moist Mucous membranes Cardiovascular: Regular rate and rhythm with a normal S1 and S2. No gallops, murmurs, or rubs. No pulse deficits. Respiratory: Respirations even and unlabored. No increased work of breathing, no retractions or nasal flaring. Skin: Warm, dry with normal turgor. Normal color. MS/ Extremity: Pulses equal, no cyanosis. Neurovascular intact. Full, normal range of motion. Neuro: Awake and alert, GCS 15, oriented to person, place, time, and situation. Moves all extremities. Normal gait. Psych: Awake, alert, with orientation to person, place and time. Behavior, mood, and affect are within normal limits. 09:30 Abdomen/GI: Inspection: abdomen appears normal, Bowel sounds: normal, Palpation: soft, in all quadrants, mild abdominal tenderness, in the right upper quadrant. Vital Signs: 07:28 BP 143 / 82; Pulse 110; Resp 18; Temp 97.8(TE); Pulse Ox 98% ; Weight 127.01 kg; Height ss 5 ft. 4 in. (162.56 cm); 10:00 BP 121 / 83; Pulse 93; Resp 20; Pulse Ox 92% on R/A; Pain 6/10; jh6 11:15 BP 153 / 88; Pulse 96; Resp 20 S; Pulse Ox 96% on R/A; jg9 07:28 Body Mass Index 48.06 (127.01 kg, 162.56 cm) ss MDM: 06:50 Patient medically screened. kb 09:28 Data reviewed: vital signs, nurses notes. Data interpreted: Pulse oximetry: on room air kb is 98 %. Interpretation: normal. 11:15 Counseling: I had a detailed discussion with the patient and/or guardian regarding: the kb historical points, exam findings, and any diagnostic results supporting the discharge/admit diagnosis, lab results, radiology results, the need for outpatient follow up, a family practitioner, to return to the emergency department if symptoms worsen or persist or if there are any questions or concerns that arise at home. 04/04 07:25 Order name: Basic Metabolic Panel kb 04/04 07:25 Order name: CBC with Diff kb 04/04 07:25 Order name: Hepatic Function kb 04/04 07:25 Order name: Lipase kb 04/04 07:25 Order name: Strep; Complete Time: 09:01 kb 04/04 07:25 Order name: Basic Metabolic Panel; Complete Time: 08:39 EDMS 04/04 07:25 Order name: CT Abd/Pelvis - IV Contrast Only; Complete Time: 09:01 kb 04/04 07:25 Order name: CBC with Automated Diff; Complete Time: 08:26 EDMS 04/04 07:25 Order name: Liver (Hepatic) Function; Complete Time: 08:39 EDMS 04/04 07:25 Order name: Lipase; Complete Time: 08:39 EDMS 04/04 08:18 Order name: Urine Dipstick-Ancillary; Complete Time: 08:20 EDMS 04/04 08:21 Order name: Urine --Ancillary (enter results); Complete Time: 09:15 eb 04/04 08:56 Order name: Throat Culture EDMS 04/04 09:28 Order name: COVID-19/FLU A+B (Document "Date of Onset" if Symptomatic); Complete Time: kb 11:15 04/04 07:25 Order name: IV Saline Lock; Complete Time: 08:07 kb 04/04 07:25 Order name: Labs collected and sent; Complete Time: 08:07 kb 04/04 07:25 Order name: Urine Dipstick-Ancillary (obtain specimen); Complete Time: 08:19 kb 04/04 07:25 Order name: Urine Test (obtain specimen); Complete Time: 08:19 kb 04/04 09:33 Order name: Chest Single View XRAY; Complete Time: 10:36 kb Administered Medications: 09:48 Drug: Ketorolac 30 mg Route: IVP; Site: left antecubital; [facility] 11:00 Follow up: Response: No adverse reaction; No change in condition jg9 09:48 Drug: Zofran (Ondansetron) 4 mg Route: IVP; Site: left antecubital; [facility] 11:00 Follow up: Response: No adverse reaction; No change in condition jg9 Disposition: 19:11 Co-signature as Attending Physician, Zeke Jhaveri MD. mh7 Disposition Summary: 04/04/21 11:16 Discharge Ordered Location: Home kb Condition: Stable kb Diagnosis - Abdominal pain, Generalized kb Followup: kb - With: Emergency Department - When: As needed - Reason: Worsening of condition Followup: kb - With: Private Physician - When: 2 - 3 days - Reason: Recheck today's complaints, Continuance of care, Re-evaluation by your physician Discharge Instructions: - Discharge Summary Sheet kb - Viral Gastroenteritis, Adult, [id number] kb - Abdominal Pain, Adult, [id number] kb Forms: - Medication Reconciliation Form kb - Thank You Letter kb - Antibiotic Education kb - Prescription Opioid Use kb Prescriptions: - Zofran 4 mg Oral Tablet - take 1 tablet by ORAL route every 6 hours As needed; 20 tablet; Refills: 0, kb Product Selection Permitted - Diclofenac Sodium 75 mg Oral tablet,delayed release (DR/EC) - take 1 tablet by ORAL route 2 times per day As needed; 30 tablet; Refills: 0, kb Product Selection Permitted Signatures: Dispatcher [employer] EDMS Nadia Martinez, DYLAN-C Angeli Riddle RN RN ss Zeke Jhaveri MD MD mh7 Cee Del Rosario RN RN jh6 Cee Ceron jg9 Corrections: (The following items were deleted from the chart) 09:38 09:28 Counseling: I had a detailed discussion with the patient and/or guardian kb regarding: the historical points, exam findings, and any diagnostic results supporting the discharge/admit diagnosis, lab results, radiology results, the need for outpatient follow up, to return to the emergency department if symptoms worsen or persist or if there are any questions or concerns that arise at home, kb
[2021-04-04 11:47] VITALS: TEMP 97.8
[2021-04-04 12:01] VITALS: BP 153/88; O2SAT 96
== END 2021-04-04 11:37 | disposition home or self-care (01) ==
LOC: ER 06:41
DX: R10.84 Generalized abdominal pain (principal); E11.9 Type 2 diabetes mellitus without complications; I10 Essential (primary) hypertension; Z20.822 Contact with and (suspected) exposure to COVID-19
CPT/HCPCS: 0240U; 36415; 71045; 74177; 80048; 80076; 81003; 81025; 82565; 83690; 85025; 87070; 87081; 96374; 96375; 99284; J2405; Q9967